=== PATIENT | male | born 1965 | race Caucasian/White ===

== ENCOUNTER 2017-06-23 15:45 | Inpatient (IN) | payer BC, MEDICAID ==
[~2017-06-23 15:45] MED LIST: CLOPIDOGREL 75 MG TAB; HEPARIN 5,000 UNIT/0.5 ML VIAL; METOPROLOL 50 MG TAB
[2017-06-23] MEDS ORDERED: IODIXANOL LOCM 100 ML BTL (15:56)
[2017-06-23] MEDS ORDERED: LIDOCAINE 1% (MDV) 20 ML INJ (15:56)
[2017-06-23] MEDS ORDERED: HEPARIN 1000 UNITS/ML 10 ML INJ (15:56)
[2017-06-23] MEDS ORDERED: NITROGLYCERIN (IC) 100 MCG/ML INJ (15:56)
[2017-06-23] MEDS ORDERED: FENTAnyl 50 MCG/ML VIAL (15:56)
[2017-06-23] MEDS ORDERED: MIDAZOLAM 1 MG/ML 2 ML INJ (15:56)
[2017-06-23] MEDS ORDERED: IOHEXOL 350MG/ML 50 ML BTL (15:56)
[2017-06-23] MEDS ORDERED: VERAPAMIL 5 MG INJ ×2 (15:56→16:47)
[2017-06-23 15:59] LABS: ADD MAN DIFF? NO
[2017-06-23 16:00] LABS: BASOPHIL # 0.1 10^3/ul (0.0-0.1); BASOPHILS % 0.4 % (0.0-2.0); EOSINOPHILS # 0.1 10^3/ul (0.0-0.5); EOSINOPHILS % 0.7 % (0.0-7.0); HEMATOCRIT 40.3 % (42.0-52.0); HEMOGLOBIN 13.8 g/dl (14.0-18.0); LYMPHOCYTES # 1.8 10^3/ul (0.8-2.9); LYMPHOCYTES % 15.1 % (15.0-51.0); MEAN CORPUSCULAR HEMOGLOBIN 31.9 pg (29.0-33.0); MEAN CORPUSCULAR HGB CONC 34.2 g/dl (32.0-37.0); MEAN CORPUSCULAR VOLUME 93.3 fl (82.0-101.0); MEAN PLATELET VOLUME 8.2 fl (7.4-10.4); MONOCYTE # 0.7 10^3/ul (0.3-0.9); MONOCYTES % 6.4 % (0.0-11.0); NEUTROPHILS % 76.8 % (39.0-77.0); PLATELET COUNT 305 10^3/UL (140-415); RED BLOOD COUNT 4.32 10^6/ul (4.70-6.10); RED CELL DISTRIBUTION WIDTH 13.3 % (11.5-14.5)
[2017-06-23 16:00] LABS: WHITE BLOOD COUNT 11.7 10^3/ul (4.8-10.8)
[2017-06-23] MEDS ORDERED: CLOPIDOGREL 300 MG TAB (16:01)
[2017-06-23] MEDS: SOD CHLORIDE 0.9% 1,000 ML IV (16:02)
[2017-06-23] MEDS: CLOPIDOGREL 300 MG TAB PO (16:02)
[2017-06-23] MEDS: HEPARIN 5,000 UNIT/0.5 ML VIAL IV (16:02)
[2017-06-23 16:15] LABS: INR 0.95; PROTIME 12.8 Sec (11.9-14.9)
[2017-06-23 16:16] LABS: PARTIAL THROMBOPLASTIN TIME 28.3 Sec (25.0-35.0)
[2017-06-23 16:17] LABS: ALANINE AMINOTRANSFERASE 30 IU/L (13-69); ALBUMIN 4.1 g/dl (3.3-4.9); ALKALINE PHOSPHATASE 95 IU/L (42-121); ANION GAP 16 (8-16); ASPARTATE AMINO TRANSFERASE 22 IU/L (15-46); BILIRUBIN,INDIRECT 0.2 mg/dl (0-1.1); BILIRUBIN,TOTAL 0.2 mg/dl (0.2-1.3); BLOOD UREA NITROGEN 18 mg/dl (7-20); CALCIUM 9.2 mg/dl (8.4-10.2); CARBON DIOXIDE 29 mmol/L (21-31); CHLORIDE 102 mmol/L (97-110); CREATININE 0.72 mg/dl (0.61-1.24); GLUCOSE 114 mg/dl (70-220); POTASSIUM 3.4 mmol/L (3.5-5.1); SODIUM 144 mmol/L (135-144); TOTAL PROTEIN 7.8 g/dl (6.1-8.1)
[2017-06-23] MEDS ORDERED: ONDANSETRON 4 MG INJ (16:20)
[2017-06-23 16:29] LABS: B-TYPE NATRIURETIC PEPTIDE 31 PG/ML (0-125)
[2017-06-23 16:30] LABS: TROPONIN-I < 0.012 ng/ml (0.00-0.12)
[2017-06-23] MEDS ORDERED: EPTIFIBATIDE 100 ML IV (16:47)
[2017-06-23] MEDS ORDERED: EPTIFIBATIDE 20 ML (16:47)
[2017-06-23] MEDS ORDERED: ATROPINE 1 MG/10 ML SYRINGE (16:48)
[2017-06-23] MEDS ORDERED: AL HYDROX/MG HYDROX/SIMETH 30 ML CUP PO (17:30)
[2017-06-23] MEDS ORDERED: ACETAMINOPHEN 325 MG TAB PO (17:30)
[2017-06-23] MEDS ORDERED: OXYCODONE/ACETAMINOPHEN (5/325) TAB PO (17:30)
[2017-06-23] MEDS ORDERED: ONDANSETRON 4 MG INJ IV (17:30)
[2017-06-23] MEDS ORDERED: morphine 2 MG INJ IV (17:30)
[2017-06-23] MEDS: NICOTINE (21 MG/24 HR) PATCH TRANSDERM (18:00)
[2017-06-23] MEDS ORDERED: HYDROmorphONE 0.5 MG/0.5 ML SYG IV (18:00)
[2017-06-23] MEDS ORDERED: NACL 0.9% 3 ML SYG IV (18:00)
[2017-06-23] MEDS: EPTIFIBATIDE 100 ML IV (18:02)
[2017-06-23] MEDS: SOD CHLORIDE 0.9% 500 ML IV (18:02)
[2017-06-23] MEDS: FAMOTIDINE 20 MG TAB PO (20:45)
[2017-06-23] MEDS: ATORVASTATIN 80 MG TAB PO (20:45)
[2017-06-23] MEDS: DOCUSATE SODIUM 100 MG CAP PO (20:47)
[2017-06-23 22:21] LABS: CREATINE KINASE 831 IU/L (23-200)
[2017-06-23 22:29] LABS: CK INDEX 8.6
[2017-06-24 03:24] LABS: ANION GAP 13 (8-16); BLOOD UREA NITROGEN 14 mg/dl (7-20); CALCIUM 8.4 mg/dl (8.4-10.2); CARBON DIOXIDE 27 mmol/L (21-31); CHLORIDE 108 mmol/L (97-110); CREATININE 0.66 mg/dl (0.61-1.24); GLUCOSE 91 mg/dl (70-220); MAGNESIUM 1.8 mg/dl (1.7-2.5); SODIUM 144 mmol/L (135-144)
[2017-06-24 06:01] LABS: ADD MAN DIFF? NO
[2017-06-24 06:14] LABS: BASOPHIL # 0.1 10^3/ul (0.0-0.1); BASOPHILS % 0.7 % (0.0-2.0); EOSINOPHILS # 0.2 10^3/ul (0.0-0.5); EOSINOPHILS % 2.5 % (0.0-7.0); HEMATOCRIT 37.3 % (42.0-52.0); HEMOGLOBIN 12.6 g/dl (14.0-18.0); LYMPHOCYTES # 1.9 10^3/ul (0.8-2.9); LYMPHOCYTES % 21.8 % (15.0-51.0); MEAN CORPUSCULAR HEMOGLOBIN 32.1 pg (29.0-33.0); MEAN CORPUSCULAR HGB CONC 33.8 g/dl (32.0-37.0); MEAN CORPUSCULAR VOLUME 95.2 fl (82.0-101.0); MEAN PLATELET VOLUME 8.5 fl (7.4-10.4); MONOCYTE # 0.7 10^3/ul (0.3-0.9); MONOCYTES % 7.5 % (0.0-11.0); NEUTROPHIL # 5.9 10^3/ul (1.6-7.5); PLATELET COUNT 257 10^3/UL (140-415); RED BLOOD COUNT 3.92 10^6/ul (4.70-6.10); RED CELL DISTRIBUTION WIDTH 13.9 % (11.5-14.5)
[2017-06-24 06:14] LABS: WHITE BLOOD COUNT 8.8 10^3/ul (4.8-10.8)
[2017-06-24 06:24] LABS: HEMOGLOBIN A1C 5.6 % (0-5.9)
[2017-06-24 06:26] LABS: ANION GAP 15 (8-16); BLOOD UREA NITROGEN 13 mg/dl (7-20); CALCIUM 8.5 mg/dl (8.4-10.2); CARBON DIOXIDE 28 mmol/L (21-31); CHLORIDE 106 mmol/L (97-110); CREATININE 0.61 mg/dl (0.61-1.24); GLUCOSE 102 mg/dl (70-220); MAGNESIUM 1.9 mg/dl (1.7-2.5); POTASSIUM 3.9 mmol/L (3.5-5.1); SODIUM 145 mmol/L (135-144)
[2017-06-24 06:27] LABS: ANION GAP 14 (8-16); BLOOD UREA NITROGEN 13 mg/dl (7-20); CALCIUM 8.6 mg/dl (8.4-10.2); CARBON DIOXIDE 26 mmol/L (21-31); CHLORIDE 107 mmol/L (97-110); CHOL/HDL RATIO 4.3 RATIO; CHOLESTEROL 174 mg/dl (100-200); CREATININE 0.61 mg/dl (0.61-1.24); GLUCOSE 96 mg/dl (70-220); HDL CHOLESTEROL 40 mg/dl (28-71); LDL CHOLESTEROL,CALCULATED 115 mg/dl; POTASSIUM 4.1 mmol/L (3.5-5.1); SODIUM 143 mmol/L (135-144); TRIGLYCERIDES 95 mg/dl (0-149)
[2017-06-24 06:31] LABS: CREATINE KINASE 916 IU/L (23-200)
[2017-06-24 06:38] LABS: CK INDEX 7.7
[2017-06-24 06:42] LABS: ALANINE AMINOTRANSFERASE 38 IU/L (13-69); ALBUMIN 3.4 g/dl (3.3-4.9); ALBUMIN/GLOBULIN RATIO 1.17; ALKALINE PHOSPHATASE 80 IU/L (42-121); ANION GAP 14 (8-16); ASPARTATE AMINO TRANSFERASE 118 IU/L (15-46); BILIRUBIN,INDIRECT 0.3 mg/dl (0-1.1); BILIRUBIN,TOTAL 0.3 mg/dl (0.2-1.3); BLOOD UREA NITROGEN 13 mg/dl (7-20); CALCIUM 8.5 mg/dl (8.4-10.2); CARBON DIOXIDE 25 mmol/L (21-31); CHLORIDE 108 mmol/L (97-110); CREATININE 0.58 mg/dl (0.61-1.24); GLUCOSE 94 mg/dl (70-220); MAGNESIUM 1.8 mg/dl (1.7-2.5); POTASSIUM 4.3 mmol/L (3.5-5.1); SODIUM 143 mmol/L (135-144); TOTAL PROTEIN 6.3 g/dl (6.1-8.1)
[2017-06-24] MEDS: DOCUSATE SODIUM 100 MG CAP PO (07:59)
[2017-06-24] MEDS: CLOPIDOGREL 75 MG TAB PO (08:10)
[2017-06-24] MEDS: ASPIRIN (EC) 81 MG TAB PO (08:10)
[2017-06-24] MEDS: FAMOTIDINE 20 MG TAB PO (08:10)
[2017-06-24] MEDS: LISINOPRIL 5 MG TAB PO (08:10)
[2017-06-24] MEDS ORDERED: PROPOFOL 100 ML (15:59)
== END 2017-06-24 15:55 | disposition home or self-care (01) | DRG 247 ==
LOC: E/R 15:45 → ICU 16:14 → CCL 15:50 → SDS 15:50 → CCL 17:04 → ICU 16:40
PROC: 02C03ZZ Extirpation of Matter from Coronary Artery, One Artery, Percutaneous Approach (ICD-10-PCS; principal; 2017-06-23 16:00)
PROC: 027035Z Dilation of Coronary Artery, One Artery with Two Drug-eluting Intraluminal Devices, Percutaneous Approach (ICD-10-PCS; 2017-06-23 16:00)
PROC: 4A023N7 Measurement of Cardiac Sampling and Pressure, Left Heart, Percutaneous Approach (ICD-10-PCS; 2017-06-23 16:00)
PROC: B215YZZ Fluoroscopy of Left Heart using Other Contrast (ICD-10-PCS; 2017-06-23 16:00)
PROC: B211YZZ Fluoroscopy of Multiple Coronary Arteries using Other Contrast (ICD-10-PCS; 2017-06-23 16:00)
DX: I21.19 ST elevation (STEMI) myocardial infarction involving other coronary artery of inferior wall (principal); F17.210 Nicotine dependence, cigarettes, uncomplicated
CPT/HCPCS: 36415; 71045; 80048; 80053; 80061; 82550; 82553; 83036; 83735; 83880; 84484; 85025; 85610; 85730; 87081; 93005; 93306; 93458; 99285-25